=== PATIENT | female | born 1995 | race Caucasian/White ===

== ENCOUNTER 2019-05-07 22:24 | Emergency (ER) | payer OTHER, BC ==
--- OUTSIDE RECORDS SUMMARY | 2019-05-07 22:25 | XMS REPORT | Summary of Care ---
:1995 Author Name MEGAN COHEN M.D. Address Unavailable Unavailable , Care Team Providers Name Role Phone MEGAN COHEN M.D. Unavailable Unavailable ANDREY HAIR MD Unavailable Unavailable Unavailable Unavailable Unavailable Functional Status Name Dates Details Functional status health issues are not documented Status: Name Dates Details Cognitive status health issues are not documented Status: Problems Name Dates Details Breast lump (611.72, N63.0) Status: Active Medications Name Dates Details Medications not documented Allergies and Adverse Reactions Name Dates Details No Known Drug Allergies (Allergy) Status: Active Procedures Procedure Dates Details History of Appendectomy Completed Comments: Completed: 2012 Immunization Name Dates Details Immunizations not documented Family History Name Dates Details Family history of malignant neoplasm of female breast (V16.3, Z80.3) Status : Active Name Dates Details Family history of malignant neoplasm of ovary (V16.41, Z80.41) Status: Active Name Dates Details Family history of Fibroadenoma of breast, unspecified laterality (217, D24.9) Status: Active Social History Name Dates Details - Status: Name Dates Details Never smoker Vital Signs Date Test Result Details [id number] BP Systolic 110 mm[Hg] Status: BP Diastolic 68 mm[Hg] Status: Height 63 in Status: Weight 128 lb Status: Body Mass Index Calculated 22.67 kg/m2 Status: Body Surface Area Calculated 1.6 m2 Status: Temperature 98.2 f Status: Heart Rate 89 /min Status: Results Date Description Value Details Results not documented Plan of Care Name Dates Details Planned Observations Planned Goals not documented Interventions Provided Labs/Procedures/ImagingTobacco Use Screening; Done: 04 Dec 2018PlanMs. Can is a very pleasant 23 year-old woman who presents with a right breast lump likely to be a fibroadenoma.- Will order repeat ultrasound w/ biopsy if indicated of right breast mass (to be done at [place])- Return to clinic after results of imaging/biopsy for follow up exam Instructions Name Dates Details Instructions not documented Encounters Appointment; MEGAN COHEN M.D. On: 04-Dec-2018 10:30 Encounter Diagnosis: Problem not documented
[2019-05-07] MEDS ORDERED: IPRATROPIUM BROM 0.5MG/2.5ML ONE (22:53)
[2019-05-07] MEDS ORDERED: ALBUTEROL 2.5 MG/3 ML NEB SOL ONE (22:53)
--- NOTE | 2019-05-07 23:40 | EDPHYS ---
Physician Documentation [facility] Name: Samantha Gutiérrez Age: 23 yrs Sex: Female : 1995 Arrival Date: 05/07/2019 Time: 22:26 Bed 14 Private MD: ED Physician Sd Gillespie HPI: 05/07 23:30 This 23 yrs old Female presents to ER via Ambulatory with complaints of kb Shortness Of Breath. 23:30 The patient or guardian reports cough, that is intermittent, described as moderate, kb with no sputum, difficulty breathing. Onset: The symptoms/episode began/occurred today. Severity of symptoms: At their worst the symptoms were moderate, in the emergency department the symptoms are unchanged. Modifying factors: The symptoms are alleviated by nothing, the symptoms are aggravated by nothing. Associated signs and symptoms: Pertinent positives: rhinorrhea, sore throat. The patient has not experienced similar symptoms in the past. The patient has not recently seen a physician. Pt reports she has had a cold for the last week. Today she felt like she couldn't get enough air. 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 - Social history:: Smoking status: Patient/guardian denies using tobacco, Patient uses alcohol, occasionally. Patient/guardian denies using street drugs. - Ebola Screening: : Patient negative for fever greater than or equal to 101.5 degrees Fahrenheit, and additional compatible Ebola Virus Disease symptoms Patient denies exposure to infectious person Patient denies travel to an Ebola-affected area in the 21 days before illness onset. ROS: 23:29 Constitutional: Negative for fever, chills, and weight loss, ENT: Negative for injury, kb pain, and discharge, Neck: Negative for injury, pain, and swelling, Cardiovascular: Negative for chest pain, palpitations, and edema, Abdomen/GI: Negative for abdominal pain, nausea, vomiting, diarrhea, and constipation, Back: Negative for injury and pain, MS/Extremity: Negative for injury and deformity, Skin: Negative for injury, rash, and discoloration, Neuro: Negative for headache, weakness, numbness, tingling, and seizure. 23:29 Respiratory: Positive for cough, shortness of breath, Negative for dyspnea on exertion, hemoptysis, orthopnea, pleurisy, sputum production, wheezing. Exam: 23:30 Constitutional: This is a well developed, well nourished patient who is awake, alert, kb and in no acute distress. Head/Face: Normocephalic, atraumatic. ENT: Nares patent. No nasal discharge, no septal abnormalities noted. Tympanic membranes are normal and external auditory canals are clear. Oropharynx with no redness, swelling, or masses, exudates, or evidence of obstruction, uvula midline. Mucous membranes moist. Neck: Trachea midline, no thyromegaly or masses palpated, and no cervical lymphadenopathy. Supple, full range of motion without nuchal rigidity, or vertebral point tenderness. No Meningismus. Chest/axilla: Normal chest wall appearance and motion. Nontender with no deformity. No lesions are appreciated. Cardiovascular: Regular rate and rhythm with a normal S1 and S2. No gallops, murmurs, or rubs. Normal PMI, no JVD. No pulse deficits. Respiratory: Lungs have equal breath sounds bilaterally, clear to auscultation and percussion. No rales, rhonchi or wheezes noted. No increased work of breathing, no retractions or nasal flaring. Abdomen/GI: Soft, non-tender, with normal bowel sounds. No distension or tympany. No guarding or rebound. No evidence of tenderness throughout. Skin: Warm, dry with normal turgor. Normal color with no rashes, no lesions, and no evidence of cellulitis. MS/ Extremity: Pulses equal, no cyanosis. Neurovascular intact. Full, normal range of motion. Neuro: Awake and alert, GCS 15, oriented to person, place, time, and situation. Cranial nerves II-XII grossly intact. Motor strength 5/5 in all extremities. Sensory grossly intact. Cerebellar exam normal. Normal gait. Vital Signs: 22:35 BP 133 / 70; Pulse 103; Resp 25; Temp 97.9; Pulse Ox 100% ; Weight 56.7 kg; Height 5 rr5 ft. 4 in. (162.56 cm); Pain 0/10; 23:50 BP 122 / 75; Pulse 95; Resp 20; Temp 98.5; Pulse Ox 99% on R/A; rr5 22:35 Body Mass Index 21.46 (56.70 kg, 162.56 cm) rr5 MDM: 22:27 Patient medically screened. kb 23:29 Data reviewed: vital signs, nurses notes. Data interpreted: Pulse oximetry: on room air kb is 100 %. Interpretation: normal. 23:30 Counseling: I had a detailed discussion with the patient and/or guardian regarding: the kb historical points, exam findings, and any diagnostic results supporting the discharge/admit diagnosis, lab results, radiology results, the need for outpatient follow up, a family practitioner, to return to the emergency department if symptoms worsen or persist or if there are any questions or concerns that arise at home. 05/07 22:48 Order name: Flu; Complete Time: 23:23 kb 05/07 22:48 Order name: Strep; Complete Time: 23:23 kb 05/07 22:48 Order name: Chest Pa And Lat (2 Views) XRAY kb 05/07 23:22 Order name: Throat Culture EDMS Administered Medications: 23:04 Drug: DuoNeb (3:1) (2.5 mg - 0.5 mg) 3 ml Route: Nebulizer; rr5 23:54 Follow up: Response: No adverse reaction; Marked relief of symptoms rr5 23:53 Drug: Zithromax 500 mg Route: PO; rr5 23:54 Follow up: Response: Medication administered at discharge. rr5 Disposition: 05/08 01:26 Co-signature as Attending Physician, Sd Gillespie MD. pkl Disposition: 05/07/19 23:39 Discharged to Home. Impression: Pneumonia, unspecified organism. - Condition is Stable. - Discharge Instructions: Community-Acquired Pneumonia, Adult, [id number]. - Prescriptions for Albuterol Sulfate 90 mcg/actuation - inhale 1-2 puff by INHALATION route every 4-6 hours; 1 Inhaler. Zithromax 500 mg Oral Tablet - take 1 tablet by ORAL route once daily for 5 days; 5 tablet. - Medication Reconciliation Form, Thank You Letter, Antibiotic Education, Prescription Opioid Use form. - Follow up: Emergency Department; When: As needed; Reason: Worsening of condition. Follow up: Private Physician; When: 2 - 3 days; Reason: Recheck today's complaints, Continuance of care, Re-evaluation by your physician. Signatures: Dispatcher [employer] EDSharlene Pardo, Sd Enrique MD MD pkl Roque, Raymond RN RN rr5 Corrections: (The following items were deleted from the chart) 05/07 23:56 23:39 05/07/2019 23:39 Discharged to Home. Impression: Pneumonia, unspecified organism. rr5 Condition is Stable. Forms are Medication Reconciliation Form, Thank You Letter, Antibiotic Education, Prescription Opioid Use. Follow up: Emergency Department; When: As needed; Reason: Worsening of condition. Follow up: Private Physician; When: 2 - 3 days; Reason: Recheck today's complaints, Continuance of care, Re-evaluation by your physician. kb
--- NOTE | 2019-05-07 23:40 | ER ---
Nurse's Notes [facility] Name: Samantha Gutiérrez Age: 23 yrs Sex: Female : 1995 Arrival Date: 05/07/2019 Time: 22:26 Bed 14 Private MD: Diagnosis: Pneumonia, unspecified organism Presentation: 05/07 22:30 Presenting complaint: Patient states: I can't breath, started coughing continuously now rr5 I am having hard time to breath. started around 930 PM tonight denies chests pain. 22:30 Transition of care: patient was not received from another setting of care. Onset of rr5 symptoms was May 07, 2019 at 21:30. Risk Assessment: Do you want to hurt yourself or someone else? Patient reports no desire to harm self or others. Initial Sepsis Screen: Does the patient meet any 2 criteria? RR > 20 per min. No. Patient's initial sepsis screen is negative. Does the patient have a suspected source of infection? No. Patient's initial sepsis screen is negative. Care prior to arrival: Medication(s) given: proair. 22:30 Method Of Arrival: Ambulatory rr5 22:30 Acuity: BRYCE 3 rr5 Triage Assessment: 22:30 General: Appears in no apparent distress. Behavior is calm, cooperative, appropriate rr5 for age. Respiratory: Onset: The symptoms/episode began/occurred gradually, the patient has mild shortness of breath. 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 - Social history:: Smoking status: Patient/guardian denies using tobacco, Patient uses alcohol, occasionally. Patient/guardian denies using street drugs. - Ebola Screening: : Patient negative for fever greater than or equal to 101.5 degrees Fahrenheit, and additional compatible Ebola Virus Disease symptoms Patient denies exposure to infectious person Patient denies travel to an Ebola-affected area in the 21 days before illness onset. Screenin:38 Abuse screen: Denies threats or abuse. Denies injuries from another. Nutritional rr5 screening: No deficits noted. Tuberculosis screening: No symptoms or risk factors identified. Fall Risk None identified. Total Cardoso Fall Scale indicates No Risk (0-24 pts). Assessment: 22:30 General: Appears in no apparent distress. uncomfortable, Behavior is calm, cooperative, rr5 appropriate for age. 22:30 Pain: Denies pain. Neuro: Level of Consciousness is awake, alert, obeys commands, rr5 Oriented to person, place, time, situation, Appropriate for age. Cardiovascular: Denies chest pain, Capillary refill < 3 seconds Patient's skin is warm and dry. Rhythm is sinus tachycardia. Respiratory: Reports shortness of breath since 2129 cough that is Airway is patent Respiratory effort is even, Respiratory pattern is tachypnea Breath sounds are clear. GI: No signs and/or symptoms were reported involving the gastrointestinal system. : No signs and/or symptoms were reported regarding the genitourinary system. EENT: No signs and/or symptoms were reported regarding the EENT system. Derm: Skin is intact, is healthy with good turgor, Skin temperature is warm. Musculoskeletal: Circulation, motion, and sensation intact. Capillary refill < 3 seconds. 23:54 Reassessment: Patient appears in no apparent distress at this time. Patient is alert, rr5 oriented x 3, equal unlabored respirations, skin warm/dry/pink. discharge instruction given and explained without complaints made. Patient states feeling better. Patient states symptoms have improved. Vital Signs: 22:35 BP 133 / 70; Pulse 103; Resp 25; Temp 97.9; Pulse Ox 100% ; Weight 56.7 kg; Height 5 rr5 ft. 4 in. (162.56 cm); Pain 0/10; 23:50 BP 122 / 75; Pulse 95; Resp 20; Temp 98.5; Pulse Ox 99% on R/A; rr5 22:35 Body Mass Index 21.46 (56.70 kg, 162.56 cm) rr5 ED Course: 22:26 Patient arrived in ED. cf2 22:26 Sourav Adrian, TEE is Primary Nurse. rr5 22:27 Sharlene Shaw FNP-C [facility]. kb 22:27 Sd Gillespie MD is Attending Physician. kb 22:30 Patient has correct armband on for positive identification. Placed in gown. Bed in low rr5 position. Call light in reach. desk monitor on. Pulse ox on. NIBP on. 22:35 Triage completed. rr5 22:38 Arm band placed on. rr5 22:57 Flu and/or RSV swab sent to lab. Strep swab sent to lab. rr5 23:26 Chest Pa And Lat (2 Views) XRAY In Process Unspecified. EDMS 23:55 No provider procedures requiring assistance completed. Patient did not have IV access rr5 during this emergency room visit. Administered Medications: 23:04 Drug: DuoNeb (3:1) (2.5 mg - 0.5 mg) 3 ml Route: Nebulizer; rr5 23:54 Follow up: Response: No adverse reaction; Marked relief of symptoms rr5 23:53 Drug: Zithromax 500 mg Route: PO; rr5 23:54 Follow up: Response: Medication administered at discharge. rr5 Outcome: 23:39 Discharge ordered by MD. kb 23:55 Discharged to home ambulatory, with family. rr5 23:55 Condition: stable 23:55 Discharge instructions given to patient, Instructed on discharge instructions, follow up and referral plans. medication usage, Demonstrated understanding of instructions, follow-up care, medications, Prescriptions given X 2. 23:56 Patient left the ED. rr5 Signatures: Dispatcher [employer] EDMS Sharlene Shaw, LAURA CAICEDO-Sourav Winslow, RN RN rr5 Luc Fernandez cf2 Corrections: (The following items were deleted from the chart) 22:40 22:30 Care prior to arrival: None. rr5 rr5
[2019-05-07] MEDS ORDERED: AZITHROMYCIN 250 MG TAB ONE (23:51)
[2019-05-08 02:14] VITALS: BP 122/75; TEMP 98.5; O2SAT 99
--- NOTE | 2019-05-08 08:09 | RAD REPORT ---
EXAM DESCRIPTION: Michael Chance (2 Views)05/07/2019 11:25 pm CLINICAL HISTORY: Cough COMPARISON: None FINDINGS: The lungs are hyperaerated The lungs appear clear of acute infiltrate. The heart is normal size IMPRESSION: No acute abnormalities displayed
== END 2019-05-07 23:56 | disposition home or self-care (01) ==
LOC: ER 22:24
DX: J18.9 Pneumonia, unspecified organism (principal)
CPT/HCPCS: 71046; 87070; 87081; 87804; 94640; 99285

== ENCOUNTER 2020-09-23 15:55 | Emergency (ER) | payer BC ==
--- OUTSIDE RECORDS SUMMARY | 2020-09-23 15:57 | XMS REPORT | Continuity of Care Document ---
:1995 Author Organization [facility] t Address [address] [place] [address] [address] [place] [address] Care Team Providers Name Role Phone COHEN Attending Clinician Unavailable Problems Condition Condition Condition Status Onset Resolution Last Treating Co mments Source Name Details Category Date Date Treatment Clinician Date Breast Breast Problem Active [facility] lump [facility] [place] [facility] ans Allergies, Adverse Reactions, Alerts This patient has no known allergies or adverse reactions. Family History Family Member Diagnosis Comments Start Date Stop Date Source Grandmother Family history of [facility] [place] malignant neoplasm of Phy sicians female breast aunt Family history of [facility] [place] malignant neoplasm of y sicians ovary Mother Family history of [facility] [place] Fibroadenoma of Physician s breast, unspecified laterality Social History Smoking Status Start Date Stop Date Source Never smoker [facility] Medications This patient has no known medications. Vital Signs Vital Name Observation Time Observation Value Comments Source BP Diastolic 2018-12-04 10:36:00 68 mm[Hg] [facility] Height 2018-12-04 10:36:00 63 [in_us] [facility] Physician s Weight 2018-12-04 10:36:00 128 [lb_av] [facility] Physician s Body Mass Index 2018-12-04 10:36:00 22.67 kg/m2 Unive rs[facility] Calculated [place] Physician s Temperature 2018-12-04 10:36:00 98.2 [degF] [facility] Physician s Heart Rate 2018-12-04 10:36:00 89 /min [facility] Physician s BP Systolic 2018-12-04 10:36:00 110 mm[Hg] [facility] Physician s Procedures Procedure Date / Time Performing Clinician Source Performed History of Appendectomy [facility] Encounters Start End Encounter Admission Attending Care Care Encounter Source Date/Time Date/Time Type Type Clinicians Facility Department ID 2018-12-04 2018-12-04 Appointmen NOEL [facility] [id number] [facility] 10:30:00 10:30:00 t; Klaus GUZMAN Surgery - [facility] ans Results This patient has no known results.
--- NOTE | 2020-09-23 17:31 | RAD REPORT ---
EXAM DESCRIPTION: Michael Chance (2 Views)09/23/2020 5:15 pm CLINICAL HISTORY: Cough COMPARISON: 2019 FINDINGS: The lungs appear clear of acute infiltrate. The heart is normal size IMPRESSION: No acute abnormalities displayed
--- NOTE | 2020-09-23 18:51 | EDPHYS ---
Physician Documentation [facility] Name: Samantha Gutiérrez Age: 24 yrs Sex: Female : 1995 Arrival Date: 09/23/2020 Time: 15:56 Bed Waiting Private MD: ED Physician Jose A Gillis HPI: 09/23 18:45 This 24 yrs old Female presents to ER via Ambulatory with complaints of cp Shortness Of Breath - covid+. 18:45 The patient has shortness of breath with light activity. Onset: The symptoms/episode cp began/occurred gradually, and became worse today. Associated signs and symptoms: Pertinent positives: non-productive cough, Pertinent negatives: chest pain, fever. Patient reports being diagnosed with COVID-19 last week. Currently taking Zithromax, oral prednisone, and using a pro-air inhaler. 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 - Social history:: Smoking status: Patient denies any tobacco usage or history of. ROS: 18:47 Eyes: Negative for injury, pain, redness, and discharge. cp 18:47 Constitutional: Negative for body aches, chills, fever, poor PO intake. 18:47 ENT: Negative for ear pain, sore throat, difficulty swallowing, difficulty handling secretions. 18:47 Cardiovascular: Negative for chest pain, palpitations. 18:47 Respiratory: Positive for cough, with no reported sputum, shortness of breath, on exertion. Negative for wheezing. 18:47 Abdomen/GI: Negative for abdominal pain, nausea, vomiting, and diarrhea. 18:47 Skin: Negative for rash. 18:47 Neuro: Negative for altered mental status, headache, syncope, weakness. 18:47 All other systems are negative. Exam: 18:48 Head/Face: Normocephalic, atraumatic. cp 18:48 Constitutional: The patient appears in no acute distress, alert, awake, non-toxic, well developed, well nourished. 18:48 Eyes: Periorbital structures: appear normal, Conjunctiva: normal, no exudate, no injection, Sclera: no appreciated abnormality, Lids and lashes: appear normal, bilaterally. 18:48 ENT: External ear(s): are unremarkable, Nose: is normal, Posterior pharynx: Airway: no evidence of obstruction, patent. 18:48 Chest/axilla: Inspection: normal, Palpation: is normal, no crepitus, no tenderness. 18:48 Cardiovascular: Rate: normal, Rhythm: regular. 18:48 Respiratory: the patient does not display signs of respiratory distress, Respirations: normal, no use of accessory muscles, no retractions, labored breathing, is not present, Breath sounds: bronchial sounds, that are mild, are heard diffusely, decreased breath sounds, are not appreciated, stridor, is not appreciated, wheezing: is not appreciated. 18:48 Abdomen/GI: Exam negative for discomfort, distension, guarding, Inspection: abdomen appears normal. Vital Signs: 16:31 BP 127 / 76; Pulse 93; Resp 17; Temp 98.8(O); Pulse Ox 98% on R/A; Weight 58.51 kg; jl7 Height 5 ft. 3 in. (160.02 cm); Pain 0/10; 18:42 BP 126 / 79; Pulse 89; Resp 19; Pulse Ox 99% ; jl7 16:31 Body Mass Index 22.85 (58.51 kg, 160.02 cm) jl7 MDM: 18:45 Differential diagnosis: asthma, Bronchitis pneumonia, Pneumothorax pulmonary edema, cp Pulmonary Embolism. 18:50 Data reviewed: vital signs, nurses notes, radiologic studies, plain films. 18:50 Test interpretation: by ED physician or midlevel provider: plain radiologic studies. cp Counseling: I had a detailed discussion with the patient and/or guardian regarding: the historical points, exam findings, and any diagnostic results supporting the discharge/admit diagnosis, radiology results, to return to the emergency department if symptoms worsen or persist or if there are any questions or concerns that arise at home. ED course: VSS. Patient appears non-toxic and no signs of respiratory distress. Chest xray clear of infiltrates. Will discharge to home for continued monitoring. Return to Ed worsening symptoms. 18:51 Patient medically screened. cp 09/23 16:35 Order name: XRAY Chest Pa And Lat (2 Views) sv 09/23 17:31 Order name: THONY; Complete Time: 18:03 EDMS Administered Medications: No medications were administered Disposition: 19:03 Co-signature as Attending Physician, Jose A Gillis MD. rn Disposition: 09/23/20 18:51 Discharged to Home. Impression: Coronavirus infection, unspecified. - Condition is Stable. - Discharge Instructions: COVID-19. - Prescriptions for Tessalon Perles 100 mg Oral Capsule - take 2 capsule by ORAL route every 8 hours As needed; 30 capsule. - Medication Reconciliation Form, Thank You Letter, Antibiotic Education, Prescription Opioid Use form. - Follow up: Private Physician; When: 2 - 3 days; Reason: Worsening of condition. - Problem is new. - Symptoms are unchanged. Signatures: Dispatcher [employer] EDWI Jose A Gillis MD MD rn Sabino Tijerina PA PA cp Leal, Jahala, RN RN jl7 Corrections: (The following items were deleted from the chart) 18:58 18:51 09/23/2020 18:51 Discharged to Home. Impression: Coronavirus infection, jl7 unspecified. Condition is Stable. Forms are Medication Reconciliation Form, Thank You Letter, Antibiotic Education, Prescription Opioid Use. Follow up: Private Physician; When: 2 - 3 days; Reason: Worsening of condition. Problem is new. Symptoms are unchanged. cp
--- NOTE | 2020-09-23 18:51 | ER ---
Nurse's Notes [facility] Name: Samantha Gutiérrez Age: 24 yrs Sex: Female : 1995 Arrival Date: 09/23/2020 Time: 15:56 Bed Waiting Private MD: Diagnosis: Coronavirus infection, unspecified Presentation: 09/23 16:31 Chief complaint: Patient states: Dx with COVID on , had a coughing fir earlier jl7 and couldn't catch my breath, reports mild SOB right now. Coronavirus screen: Client denies travel out of the [place] in the last 14 days. difficulty breathing, shortness of breath, Client presents with at least one sign or symptom that may indicate coronavirus-19. Standard/surgical mask placed on the client. Provider contacted for isolation considerations. Client reports previous positive COVID test result. Date of collection: September 18, 2020. Ebola Screen: No symptoms or risks identified at this time. Initial Sepsis Screen: Does the patient meet any 2 criteria? No. Patient's initial sepsis screen is negative. Does the patient have a suspected source of infection? No. Patient's initial sepsis screen is negative. Risk Assessment: Do you want to hurt yourself or someone else? Patient reports no desire to harm self or others. Onset of symptoms was September 23, 2020. Care prior to arrival: None. 16:31 Method Of Arrival: Ambulatory [facility] 16:31 Acuity: BRYCE 3 jl7 Triage Assessment: 16:31 General: Appears in no apparent distress. uncomfortable, Behavior is calm, cooperative, jl7 appropriate for age. Pain: Denies pain. Neuro: Level of Consciousness is awake, alert, obeys commands, Oriented to person, place, time, situation. Cardiovascular: Patient's skin is warm and dry. Respiratory: Reports shortness of breath Airway is patent Respiratory effort is even, unlabored, Respiratory pattern is regular, symmetrical, Onset: The symptoms/episode began/occurred gradually, the patient has mild shortness of breath. Derm: Skin is pink, warm \T\ dry. 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 - Social history:: Smoking status: Patient denies any tobacco usage or history of. Screenin:30 Abuse screen: Denies threats or abuse. Denies injuries from another. Nutritional jl7 screening: No deficits noted. Tuberculosis screening: No symptoms or risk factors identified. Fall Risk None identified. Assessment: 16:30 General: See triage assessment. jl7 18:30 Reassessment: MARINA Smith in triage assessing pt, discussing results and POC. jl7 18:58 Respiratory: jl7 Vital Signs: 16:31 BP 127 / 76; Pulse 93; Resp 17; Temp 98.8(O); Pulse Ox 98% on R/A; Weight 58.51 kg; jl7 Height 5 ft. 3 in. (160.02 cm); Pain 0/10; 18:42 BP 126 / 79; Pulse 89; Resp 19; Pulse Ox 99% ; jl7 16:31 Body Mass Index 22.85 (58.51 kg, 160.02 cm) jl7 ED Course: 15:56 Patient arrived in ED. as 16:33 Triage completed. jl7 16:33 Arm band placed on right wrist. jl7 16:37 [facility]. cp 16:38 Jose A Gillis MD is Attending Physician. cp 18:30 Patient has correct armband on for positive identification. Placed in gown. Bed in low jl7 position. Call light in reach. Side rails up X 1. Pulse ox on. NIBP on. 18:30 No provider procedures requiring assistance completed. Patient did not have IV access jl7 during this emergency room visit. Administered Medications: No medications were administered Outcome: 18:51 Discharge ordered by . cp 18:58 Discharged to home ambulatory. jl7 18:58 Condition: stable 18:58 Discharge instructions given to patient, Instructed on discharge instructions, follow up and referral plans. medication usage, Demonstrated understanding of instructions, follow-up care, medications, Prescriptions given X 1. 18:58 Patient left the ED. jl7 Signatures: Polly Finney as Sabino Tijerina PA PA cp Leal, Jahala RN RN jl7
[2020-09-23 19:13] VITALS: TEMP 98.8
[2020-09-23 19:19] VITALS: BP 126/79; O2SAT 99
== END 2020-09-23 18:58 | disposition home or self-care (01) ==
LOC: ER 15:55
DX: U07.1 COVID-19 (principal)
CPT/HCPCS: 71046; 99283